=== PATIENT | male | born 1935 | race African-American/Black ===

== ENCOUNTER → 2017-05-23 | Outpatient (CLI) | payer MEDICARE ==
--- NOTE | 2017-05-23 10:49 | RADIOLOGY REPORT (SQ) ---
EXAM DESCRIPTION: CT HEAD WITHOUT COMPLETED DATE/TIME: 05/23/2017 10:27 am REASON FOR STUDY: EPILEPSY G40.909 EPILEPSY, UNSP, NOT INTRACTABLE, WITHOUT STATUS EPIL COMPARISON: None. TECHNIQUE: Axial images acquired through the brain without intravenous contrast. Images reviewed wi th bone, brain and subdural windows. Images stored on PACS. All CT scanners at this facility use dose modulation, iterative reconstruction, and/or weight based d osing when appropriate to reduce radiation dose to as low as reasonably achievable (ALARA). [facility]: Dose Right [facility]: CareDose [facility]: Dose Right [facility]: Teradose 4D [facility]: Smart [employer]s RADIATION DOSE: Up-to-date CT equipment and radiation dose reduction techniques were employed. CTDIv ol: 21.5 - 21.6 mGy. DLP: 984 mGy-cm. mGy. LIMITATIONS: Motion artifact throughout the scan. Patient was scanned twice FINDINGS: Study is significantly degraded by patient motion artifact. There is a right parietal int raventricular drainage catheter with the tip in the anterior 3rd ventricle or medial left frontal hor n lateral ventricle. Diffuse moderate hydrocephalus is present worrisome for shunt malfunction. This report was called to Dr. Quarles, 1030 hours 05/23/2017. Remainder of the study is significantly degraded by patient motion artifact. No gross large acute in tracranial hemorrhage or midline shift. IMPRESSION: Moderate hydrocephalus with right parietal intraventricular drainage catheter in place. Findings are worrisome for shunt malfunction TECHNICAL DOCUMENTATION: JOB ID: [id number] Quality ID # [id number]: Final reports with documentation of one or more dose reduction techniques (e.g., Au tomated exposure control, adjustment of the mA and/or kV according to patient size, use of iterative reconstruction technique) 2010 [employer]- All Rights Reserved
== END ==
LOC: RAD 10:07
PROVIDERS: ATTEND Family Medicine
DX: G40.909 Epilepsy, unspecified, not intractable, without status epilepticus (principal)
CPT/HCPCS: 70450

== ENCOUNTER 2017-07-02 17:15 | Emergency (ER) | payer MEDICARE ==
--- NOTE | 2017-07-02 17:49 | ER Document Report ---
ED Medical Screen (RME) - General Chief Complaint: Probable Seizure Stated Complaint: POSSIBLE SEIZURE Time Seen by Provider: 07/02/17 17:39 Mode of Arrival: Medic Information source: Patient Notes: pt has hx of seizures and is on keppra, had seizure today, family found down, they do not know how long he was down. ambulance says that he had seizures on ambulance, gave him versed. now unresponsive. TRAVEL OUTSIDE OF THE [place] IN LAST 30 DAYS: No - Related Data Allergies/Adverse Reactions: No Known Allergies Allergy (Verified 09/29/16 23:23) Past Medical History - General Information source: Emergency Med Personnel - Past Medical History Cardiac Medical History: Reports: Hx Hypertension Neurological Medical History: Denies: Hx Seizures Musculoskeltal Medical History: Reports Hx Arthritis Psychiatric Medical History: Reports: Hx Dementia Review of Systems - Review of Systems Neurological/Psychological: See HPI Physical Exam - Notes Notes: PHYSICAL EXAMINATION: GENERAL: elderly, in no acute distress. NEUROLOGICAL: unresponsive Course - Re-evaluation Re-evalutation: 07/02/17 17:49 family says that he is "unresponsive at baseline" per emt
[2017-07-02] MEDS ORDERED: LORAZEPAM INJ 2 MG/1 ML VIAL IV ONE (18:31)
--- NOTE | 2017-07-02 18:46 | RADIOLOGY REPORT (SQ) ---
EXAM DESCRIPTION: CT HEAD WITHOUT COMPLETED DATE/TIME: 07/02/2017 6:29 pm REASON FOR STUDY: seizure, unresponsive COMPARISON: 05/23/2017 TECHNIQUE: Axial images acquired through the brain without intravenous contrast. Images reviewed wi th bone, brain and subdural windows. Images stored on PACS. All CT scanners at this facility use dose modulation, iterative reconstruction, and/or weight based d osing when appropriate to reduce radiation dose to as low as reasonably achievable (ALARA). [facility]: Dose Right [facility]: CareDose [facility]: Dose Right [facility]: Teradose 4D [facility]: Smart [employer] RADIATION DOSE: Up-to-date CT equipment and radiation dose reduction techniques were employed. CTDIv ol: 49.0 mGy. DLP: 783 mGy-cm.mGy. LIMITATIONS: None. FINDINGS: VENTRICLES: Stable in size and contour with ventriculostomy catheter in place. CEREBRUM: No masses. No hemorrhage. No midline shift. Areas of low density in the white matter mos t likely due to chronic micro-vascular ischemic change. No evidence for acute infarction. CEREBELLUM: No masses. No hemorrhage. No alteration of density. No evidence for acute infarction. EXTRAAXIAL SPACES: Age-related involutional change. No fluid collections. No masses. ORBITS AND GLOBE: No intra- or extraconal masses. Normal contour of globe without masses. CALVARIUM: No fracture. PARANASAL SINUSES: No fluid or mucosal thickening. SOFT TISSUES: No mass or hematoma. OTHER: No other significant finding. IMPRESSION: NO ACUTE INTRACRANIAL PROCESS. NO SIGNIFICANT CHANGE FROM PRIOR STUDY. TECHNICAL DOCUMENTATION: JOB ID: [id number] Quality ID # [id number]: Final reports with documentation of one or more dose reduction techniques (e.g., Au tomated exposure control, adjustment of the mA and/or kV according to patient size, use of iterative reconstruction technique) 2010 [employer]- All Rights Reserved
--- NOTE | 2017-07-02 19:06 | ER Document Report ---
ED General - General Chief Complaint: Seizure Stated Complaint: POSSIBLE SEIZURE Time Seen by Provider: 07/02/17 17:39 Mode of Arrival: Medic Notes: 81-year-old male with a history of severe end-stage dementia, contracted, nonfunctional and nonverbal as well as a reported history of epilepsy on Keppra presents with 2 seizures in a row. Generalized tonic-clonic, was unresponsive during but slightly better afterward. He did receive Ativan from EMS. His baseline is apparently able to "point at things" but does not talk or do any of his ADLs. TRAVEL OUTSIDE OF THE [place] IN LAST 30 DAYS: No - Related Data Allergies/Adverse Reactions: No Known Allergies Allergy (Verified 09/29/16 23:23) Past Medical History - General Information source: Relative - Limited by lack of information, Emergency Med Personnel - Social History Smoking Status: Former Smoker Family History: Reviewed & Not Pertinent - Past Medical History Cardiac Medical History: Reports: Hx Hypertension Neurological Medical History: Denies: Hx Seizures Musculoskeltal Medical History: Reports Hx Arthritis Psychiatric Medical History: Reports: Hx Dementia Review of Systems - Review of Systems Notes: REVIEW OF SYSTEMS Unable to obtain complete review of systems secondary to dementia PHYSICAL EXAMINATION General: This is a chronically ill-appearing Head: Atraumatic, normocephalic PERRLA wasting. ENT: Ptosis, tooth decay and dry mouth Eyes: Right eye is atrophic and cannot open. Left eye has a reactive pupil at 4 mm. Neck: No JVD, supple, no guarding CVS: Normal rate, regular rhythm, no murmurs Resp: No resp distress, equal and normal breath sounds bilaterally GI: Nondistended, soft, no tenderness to palpation, no rebound or guarding Ext: No deformities, no edema, normal range of motion in upper and lower ext Back: No CVA or midline TTP Skin: No rash, warm Lymphatic: No lymphadeopathy noted Neuro: He opens eyes to voice. Moves all extremities however not on command. I suspect this is the patient's baseline. Physical Exam - Vital signs Vitals: Resp Pulse Ox 21 H 99 07/02/17 18:13 07/02/17 18:13 Course - Re-evaluation Re-evalutation: 07/02/17 19:06 End-stage dementia patient with seizures presents with seizures. He is back to baseline. No evidence of status epileptic is. Possible etiologies include epilepsy, hyponatremia, infection or intracranial lesion. Will obtain labs urine and head CT. 07/02/17 20:57 Imaging studies at baseline and labs are all normal. At 8:50 PM the patient was awake looking around the room at his baseline. Up with family and their questions were all answered satisfactorily. Insert discharge I have discussed with the patient there likely diagnosis, aftercare plan, follow-up plans and my usual and customary return precautions. They verbalized understanding of this. - Vital Signs Vital signs: Temp Pulse Resp BP Pulse Ox 18 134/87 H 100 07/02/17 20:41 07/02/17 20:41 07/02/17 20:41 - Laboratory Result Diagrams: 07/02/17 19:15 07/02/17 19:15 Laboratory results interpreted by me: 07/02/17 07/02/17 07/02/17 19:15 19:15 19:33 WBC 12.4 H Hgb 11.2 L Hct 34.7 L MCV 75 L MCH 24.3 L RDW 18.8 H Seg Neutrophils % 87.9 H Lymphocytes % 5.5 L Absolute Neutrophils 10.9 H Sodium 135.2 L Urine Blood SMALL H - Diagnostic Test Radiology reviewed: Image reviewed, Reports reviewed Discharge - Discharge Clinical Impression: Breakthrough seizure Condition: Good Disposition: HOME, SELF-CARE Instructions: Seizure, Known Epileptic ([facility]) Referrals: NIKOS LI MD [Primary Care Provider] - Follow up in 3-5 days
[2017-07-02 19:38] LABS: ABSOLUTE LYMPHOCYTES (AUTO) 0.7 10^3/uL (0.5-4.7); ABSOLUTE MONOCYTES (AUTO) 0.8 10^3/uL (0.1-1.4); ABSOLUTE NEUT (AUTO) 10.9 10^3/uL (1.7-8.2); BASOPHILS % (AUTO) 0.2 % (0-2); HEMATOCRIT 34.7 % (37.9-51.0); HEMOGLOBIN 11.2 g/dL (13.5-17.0); HGB HCT DIFFERENCE -1.1; LYMPHOCYTES % (AUTO) 5.5 % (13-45); MEAN CORPUSCULAR HEMOGLOBIN 24.3 pg (27.0-33.4); MEAN CORPUSCULAR HGB CONC 32.4 g/dL (32.0-36.0); MEAN CORPUSCULAR VOLUME 75 fl (80-97); MONOCYTES % (AUTO) 6.4 % (3-13); RED BLOOD COUNT 4.62 10^6/uL (4.35-5.55); RED CELL DISTRIBUTION WIDTH 18.8 % (11.5-14.0); SEGMENTED NEUTROPHILS % (AUTO) 87.9 % (42-78); WHITE BLOOD COUNT 12.4 10^3/uL (4.0-10.5)
[2017-07-02 19:44] LABS: APPEARANCE,URINE CLEAR; BILIRUBIN,URINE NEGATIVE (NEGATIVE); GLUCOSE, URINE NEGATIVE (NEGATIVE); KETONES,URINE NEGATIVE (NEGATIVE); LEUKOCYTE ESTERASE,URINE NEGATIVE (NEGATIVE); NITRITE,URINE NEGATIVE (NEGATIVE); PROTEIN,URINE NEGATIVE (NEGATIVE); URINE SPECIFIC GRAVITY 1.008; UROBILINOGEN,URINE NEGATIVE mg/dL (<2.0)
[2017-07-02 19:58] LABS: URINE BARBITURATES SCREEN NEGATIVE; URINE METHADONE SCREEN NEGATIVE; URINE OPIATES LOW NEGATIVE; URINE PHENCYCLIDINE SCREEN NEGATIVE
[2017-07-02 19:59] LABS: ALANINE AMINOTRANSFERASE 29 U/L (21-72); ALBUMIN 3.9 g/dL (3.5-5.0); ALKALINE PHOSPHATASE 73 U/L (38-126); ANION GAP 11 (5-19); ASPARTATE AMINO TRANSFERASE 23 U/L (17-59); BILIRUBIN,DIRECT 0.2 mg/dL (0.0-0.4); BILIRUBIN,TOTAL 0.5 mg/dL (0.2-1.3); BLOOD UREA NITROGEN 12 mg/dL (7-20); CALCIUM 8.8 mg/dL (8.4-10.2); CARBON DIOXIDE 23 mmol/L (22-30); CHLORIDE 101 mmol/L (98-107); CREATININE RESULT 0.64 mg/dL (0.52-1.25); GLUCOSE 87 mg/dL (75-110); POTASSIUM 4.1 mmol/L (3.6-5.0); SODIUM 135.2 mmol/L (137-145); TOTAL PROTEIN 7.4 g/dL (6.3-8.2)
[2017-07-02 20:42] VITALS: BP 134/87
== END 2017-07-02 21:09 | disposition home or self-care (01) ==
LOC: ER 17:15
DX: G40.909 Epilepsy, unspecified, not intractable, without status epilepticus (principal); Z79.899 Other long term (current) drug therapy; F03.90 Unspecified dementia, unspecified severity, without behavioral disturbance, psychotic disturbance, mood disturbance, and anxiety; I10 Essential (primary) hypertension; K02.9 Dental caries, unspecified; R68.2 Dry mouth, unspecified; Z87.891 Personal history of nicotine dependence
CPT/HCPCS: 99284; 51701; 96374; 36415; 85025; 80053; 81001; 80307; 70450; J2060

== ENCOUNTER 2017-07-04 10:06 | Inpatient (IN) | payer MEDICARE ==
[2017-07-04 11:24] LABS: ABSOLUTE NEUT (AUTO) 14.9 10^3/uL (1.7-8.2); BASOPHILS % (AUTO) 0.2 % (0-2); EOSINOPHILS % (AUTO) 0.1 % (0-6); HEMATOCRIT 35.7 % (37.9-51.0); HEMOGLOBIN 11.8 g/dL (13.5-17.0); HGB HCT DIFFERENCE -0.3; LYMPHOCYTES % (AUTO) 5.7 % (13-45); MEAN CORPUSCULAR HEMOGLOBIN 24.7 pg (27.0-33.4); MEAN CORPUSCULAR VOLUME 75 fl (80-97); MONOCYTES % (AUTO) 6.1 % (3-13); RED BLOOD COUNT 4.77 10^6/uL (4.35-5.55); RED CELL DISTRIBUTION WIDTH 19.2 % (11.5-14.0); SEGMENTED NEUTROPHILS % (AUTO) 87.9 % (42-78); WHITE BLOOD COUNT 16.9 10^3/uL (4.0-10.5)
[2017-07-04] MEDS ORDERED: NORMAL SALINE 1000 ML 1,000 ML IV PRN ×2 (11:26→16:09)
[2017-07-04] MEDS ORDERED: LEVETIRACETAM 1000 MG/NACL-ISO 100 ML IV ONE (11:27)
--- NOTE | 2017-07-04 11:37 | ER Document Report ---
ED General - General Chief Complaint: seizures Stated Complaint: POSSIBLE SEIZURE Time Seen by Provider: 07/04/17 10:20 Mode of Arrival: Medic Information source: Relative Notes: This is an 81-year-old man with a history of a traumatic brain injury in 1990: Encephalitis: History of shunt since 1990, diagnosed with colon cancer 8 months ago (deemed a nonsurgical in [place]), recent onset of seizures 2 months ago. Patient has been evaluated by neurology and neurosurgery at [facility] 2 months ago and found to have a disconnected shunt. Patient was deemed nonsurgical at that point by neurosurgery and the patient was placed on Keppra pseudoseizures. Patient presents after the third seizure for the past 2 months. Patient was given Versed by EMS. The seizure was described as generalized tonic-clonic activity. The patient's son states that it has been difficult for the patient to eat or drink because of frequent tonic-clonic jerking. The Keppra was recently increased to thousand milligrams twice daily. TRAVEL OUTSIDE OF THE [place] IN LAST 30 DAYS: No - HPI Onset: Last week Onset/Duration: Gradual Quality of pain: No pain Severity: None Pain Level: Denies Associated symptoms: denies: Chest pain, Fever, Shortness of breath Exacerbated by: Denies Relieved by: Denies Similar symptoms previously: Yes Recently seen / treated by doctor: Yes - Related Data Allergies/Adverse Reactions: No Known Allergies Allergy (Verified 09/29/16 23:23) Home Medications: Current Home Medications Levetiracetam [Spritam] 200 mg PO Q12 07/04/17 [History] Simvastatin 10 mg PO DAILY 07/04/17 [History] Past Medical History - General Information source: Patient - Social History Smoking Status: Never Smoker Cigarette use (# per day): No Chew tobacco use (# tins/day): No Frequency of alcohol use: None Drug Abuse: None Lives with: Family Family History: Reviewed & Not Pertinent Patient has suicidal ideation: No Patient has homicidal ideation: No - Past Medical History Cardiac Medical History: Reports: Hx Hypertension Pulmonary Medical History: Reports: None EENT Medical History: Reports: None Neurological Medical History: Reports: Hx Seizures Endocrine Medical History: Reports: None Renal/ Medical History: Reports: None. 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 Review of Systems - Review of Systems Constitutional: denies: Chills, Fever EENT: No symptoms reported Cardiovascular: No symptoms reported Respiratory: No symptoms reported Gastrointestinal: See HPI Genitourinary: No symptoms reported Male Genitourinary: No symptoms reported Musculoskeletal: No symptoms reported Skin: No symptoms reported Hematologic/Lymphatic: No symptoms reported Neurological/Psychological: See HPI Physical Exam - Vital signs Vitals: Temp Pulse Resp BP Pulse Ox 98.1 F 94 16 126/88 H 97 07/04/17 10:11 07/04/17 10:11 07/04/17 10:11 07/04/17 10:11 07/04/17 10:11 Notes: Physical exam: GENERAL: 81-year-old man, lethargic after Versed. HEAD: Atraumatic, normocephalic. EYES: Pupils equal round and reactive to light, extraocular movements intact, sclera anicteric, conjunctiva are normal. ENT: TMs normal, nares patent, oropharynx clear without exudates. Moist mucous membranes. NECK: Normal range of motion, supple without lymphadenopathy or JVD. LUNGS: Breath sounds clear to auscultation bilaterally and equal. Scattered wheezes. HEART: Regular rate and rhythm without murmurs, rubs or gallops. ABDOMEN: Soft, normoactive bowel sounds. No tenderness to palpation. No guarding, no rebound. No masses appreciated. EXTREMITIES: Normal range of motion, no pitting or edema. No clubbing or cyanosis. NEUROLOGICAL: Postictal, lethargic after Versed. At baseline, patient is nonverbal, nonambulatory. SKIN: Warm, Dry, normal turgor, no rashes or lesions noted. Course - Re-evaluation Re-evalutation: 07/04/17 15:52 Several conversations with the family as well as Dr. Quarles. The patient has had a significant decline in the last several months and his shunt is no longer functioning and he was not felt to be a surgical candidate. He was diagnosed with colon cancer 8 months ago in [place] and was deemed nonsurgical candidate at that time. He has been evaluated by the oncologist and felt to be not a candidate for chemotherapy. He has gradually had declining oral intake and worsening seizures. He was given IV Keppra in the emergency room and IV fluids. I discussed the case with Dr. Hanna (hospitalist at [facility]) and he had a chance to review the chart. The patient was felt to be appropriate for palliative care at that time and did have conversations with the family. After looking at the chart and going over the story, Dr. Austin recommended I have a conversation about hospice regarding the patient To his family. I did bring up the issue of hospice with the family and they are agreeable at this time. I have discussed this with Dr. Quarles as well in he agrees that the patient should be hospice. I spoke to the patient's son and he has agreed to make the patient a DNR. If the patient was to have a cardiac arrest, no CPR, or intubation. At this point we will make him comfortable, bring him into the hospital, Dr. Quarles will make arrangements for hospice consult and transition tomorrow. 07/04/17 20:49 Note: I have had several conversations with the family and spent time answering their questions. I have discussed the case several times with Dr. Quarles. I have spoken with [facility] as above. 07/04/17 20:50 - Vital Signs Vital signs: Temp Pulse Resp BP Pulse Ox 98.8 F 112 H 19 95/72 L 85 L 07/04/17 20:46 07/04/17 20:46 07/04/17 20:46 07/04/17 20:46 07/04/17 20:46 - Laboratory Result Diagrams: 07/04/17 11:10 07/04/17 11:10 Laboratory results interpreted by me: 07/04/17 07/04/17 07/04/17 11:10 11:10 14:03 WBC 16.9 H Hgb 11.8 L Hct 35.7 L MCV 75 L MCH 24.7 L RDW 19.2 H Seg Neutrophils % 87.9 H Lymphocytes % 5.7 L Absolute Neutrophils 14.9 H Sodium 133.7 L BUN 25 H Urine Protein 30 H Urine Ketones TRACE H Urine Blood SMALL H Urine Ascorbic Acid 20 H - Diagnostic Test Radiology reviewed: Image reviewed, Reports reviewed - Chest x-ray shows no infiltrates - EKG Interpretation by Me Rate: Normal Rhythm: NSR - EKG shows normal sinus rhythm with a ventricular rate of 97, there is some baseline artifact from frequent tonic-clonic jerking (this is baseline as per family), no obvious ST changes. Critical Care Note - Critical Care Note Total time excluding time spent on procedures (mins): 60 Discharge - Discharge Clinical Impression: Seizures Condition: Poor Disposition: ADMITTED OBSERVATION Admitting Provider: Quarles Unit Admitted: Medical Floor
[2017-07-04 11:41] LABS: ALANINE AMINOTRANSFERASE 30 U/L (21-72); ALKALINE PHOSPHATASE 69 U/L (38-126); ANION GAP 12 (5-19); ASPARTATE AMINO TRANSFERASE 49 U/L (17-59); BILIRUBIN,DIRECT 0.3 mg/dL (0.0-0.4); BLOOD UREA NITROGEN 25 mg/dL (7-20); CALCIUM 9.1 mg/dL (8.4-10.2); CARBON DIOXIDE 24 mmol/L (22-30); CHLORIDE 98 mmol/L (98-107); CREATININE RESULT 0.62 mg/dL (0.52-1.25); GLUCOSE 97 mg/dL (75-110); POTASSIUM 4.4 mmol/L (3.6-5.0); SODIUM 133.7 mmol/L (137-145); TOTAL PROTEIN 7.8 g/dL (6.3-8.2)
[2017-07-04 11:43] LABS: ALCOHOL < 10 mg/dL (NONE DETECTED)
--- NOTE | 2017-07-04 12:46 | RADIOLOGY REPORT (SQ) ---
EXAM DESCRIPTION: CHEST SINGLE VIEW COMPLETED DATE/TIME: 07/04/2017 12:01 pm REASON FOR STUDY: altered, dec o2 sat COMPARISON: CT 11/02/2016 radiograph 09/22/2016 EXAM PARAMETERS: NUMBER OF VIEWS: One view. TECHNIQUE: Single frontal radiographic view of the chest acquired. RADIATION DOSE: NA LIMITATIONS: None. FINDINGS: LUNGS AND PLEURA: No opacities, masses or pneumothorax. No pleural effusion. MEDIASTINUM AND HILAR STRUCTURES: No masses. Contour normal. HEART AND VASCULAR STRUCTURES: Heart normal in size. Normal vasculature. BONES: No acute findings. HARDWARE: Possible discontinuity of the central venous catheter. It is possible that this represents a non radiopaque connector. The tip of the catheter appears to be in the right atrium. OTHER: No other significant finding. IMPRESSION: Catheter as described. There is no acute cardiopulmonary disease. TECHNICAL DOCUMENTATION: JOB ID: [id number]
--- NOTE | 2017-07-04 13:08 | EKG REPORT ---
SEVERITY:- ABNORMAL ECG - SINUS RHYTHM LOW VOLTAGE IN FRONTAL LEADS : Confirmed by: Martin Gates MD 04-Jul-2017 13:07:46
[2017-07-04] MEDS ORDERED: CEFTRIAXONE 1 GM/D5W RTU 50 ML IV ONE (13:34)
[2017-07-04 14:26] LABS: APPEARANCE,URINE CLEAR; BILIRUBIN,URINE NEGATIVE (NEGATIVE); GLUCOSE, URINE NEGATIVE (NEGATIVE); KETONES,URINE TRACE mg/dL (NEGATIVE); LEUKOCYTE ESTERASE,URINE NEGATIVE (NEGATIVE); NITRITE,URINE NEGATIVE (NEGATIVE); PROTEIN,URINE 30 mg/dL (NEGATIVE); URINE SPECIFIC GRAVITY 1.024; UROBILINOGEN,URINE NEGATIVE mg/dL (<2.0)
[2017-07-04] MEDS ORDERED: ACETAMINOPHEN 325 MG TABLET PO PRN (16:09)
[2017-07-04] MEDS ORDERED: IPRATROPIUM/ALBUTEROL 0.5-2.5 MG/3 ML AMPUL NEB PRN (16:09)
[2017-07-04] MEDS ORDERED: ENOXAPARIN SODIUM INJ 40 MG/0.4 ML DISP.SYRIN SUBCUT ONE (17:00)
--- NOTE | 2017-07-04 18:28 | PDOC H&P ---
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 Should also have a history of the colon cancer and seen by the colorectal surgery in [place] and suggest no candidate for surgery and also seen by oncologist and no candidate for any chemotherapy or radiation therapy Patient's overall condition with the significant underlying dementia and the neurosyphilis pretty much patient does not communicate and is since the last several months patient is getting more worse Patient initially put on a Keppra 500 mg twice a day was increased to thousand milligrams twice a day because of the uncontrolled seizures and patient at this point brought to the emergency departmentAnd patient have initially CT of the head done yesterday was stableAnd the patient's brought to the my office and we increased the dose of the Keppra and patients brought again in the emergency department today with the same problems and very extensive discussions with the patient neurologist at the [facility] by the ER physicians and suggest nothing they can offer and suggest the hospice careAnd ER physician and we discussed with the family and angry with the hospice care and patient was admitted for the overnight and arrange the hospice Patient have a multiple other comorbidity with ongoing failure the patient with ongoing colon cancer within no candidate for any surgery or any chemotherapy with underlying dementia with the worsening condition since last several months I think patient is appropriate for the comfort care Past Medical History Cardiac Medical History: Reports: Hypertension Neurological Medical History: Reports: Seizures Malignancy Medical History: Reports: Colorectal Cancer GI Medical History: Reports: Gastroesophageal Reflux Disease Musculoskeltal Medical History: Reports: Arthritis Psychiatric Medical History: Reports: Dementia, General Anxiety Disorder Past Surgical History Past Surgical History: Reports: Other Social History Smoking Status: Unknown if Ever Smoked Frequency of Alcohol Use: None Hx Recreational Drug Use: No Drugs: None Hx Prescription Drug Abuse: No Family History Family History: Reviewed & Not Pertinent Parental Family History Reviewed: Yes Children Family History Reviewed: Yes Sibling(s) Family History Reviewed.: Yes Medication/Allergy Home Medications: Amlodipine Besylate 5 mg PO DAILY 09/21/16 Haloperidol [Haldol 2 mg Tablet] 2 mg PO QAM 09/21/16 Haloperidol [Haldol 2 mg Tablet] 4 mg PO QPM 09/21/16 Trihexyphenidyl HCl 2 mg PO BID 09/21/16 Levetiracetam [Spritam] 200 mg PO Q12H 07/04/17 Simvastatin 10 mg PO DAILY 07/04/17 Allergies/Adverse Reactions: No Known Allergies Allergy (Verified 09/29/16 23:23) Review of Systems All systems: reviewed and no additional remarkable complaints except as stated Physical Exam Vital Signs: Temp Pulse Resp BP Pulse Ox 98.1 F 94 16 126/88 H 97 07/04/17 10:11 07/04/17 10:11 07/04/17 10:11 07/04/17 10:11 07/04/17 10:11 Physical Exam: Patients to have a significant dementia not committed to communicate pretty much currently lying in the bed no acute distress is see General appearance: PRESENT: no acute distress Eye exam: PRESENT: PERRLA Neck exam: ABSENT: JVD Respiratory exam: PRESENT: clear to auscultation fady Cardiovascular exam: PRESENT: +S1, +S2 GI/Abdominal exam: PRESENT: normal bowel sounds, soft Extremities exam: ABSENT: pedal edema Neurological exam: PRESENT: altered Psychiatric exam: PRESENT: anxious Skin exam: PRESENT: dry Results Impressions: Chest X-Ray 07/04/17 11:37 IMPRESSION: Catheter as described. There is no acute cardiopulmonary disease. Assessment & Plan - Diagnosis (1) Uncontrolled seizures Qualifiers: Convulsion type: unspecified Qualified Code(s): R56.9 - Unspecified convulsions Is this a current diagnosis for this admission?: YesPlan: Unfortunately patients to have a hydrocephalus with the nonfunctioning DEMOLITION CRANE OPERATOR shunt and patient seen by the neurology and neurosurgery and again discussed with the ER physicians today nothing else needs to be offer and continues to Keppra the palliative care (2) Colon cancer Qualifiers: Colon location: unspecified part of colon Qualified Code(s): C18.9 - Malignant neoplasm of colon, unspecified Is this a current diagnosis for this admission?: YesPlan: Mostly a palliative care not a candidate for any surgery or any chemo or radiation's (3) Hydrocephalus Is this a current diagnosis for this admission?: YesPlan: Nonfunctioning DEMOLITION CRANE OPERATOR shunt (4) Nonfunctional of ventriculoperitoneal shunt Qualifiers: Encounter type: sequela Qualified Code(s): T85.09XS - Other mechanical complication of ventricular intracranial (communicating) shunt, sequela Is this a current diagnosis for this admission?: YesPlan: Chest the palliative care (5) Dementia Qualifiers: Dementia type: associated with other underlying disease Dementia behavioral disturbance: with behavioral disturbance Qualified Code(s): F02.81 - Dementia in other diseases classified elsewhere with behavioral disturbance Is this a current diagnosis for this admission?: YesPlan: Worsening due to the above conditions (6) Enlarged prostate with lower urinary tract symptoms (LUTS) Qualifiers: Qualified Code(s): N40.1 - Benign prostatic hyperplasia with lower urinary tract symptoms Is this a current diagnosis for this admission?: Yes (7) Urinary tract infection Qualifiers: Urinary tract infection type: acute pyelonephritis Qualified Code(s) : N10 - Acute pyelonephritis Is this a current diagnosis for this admission?: YesPlan: Continues IV Rocephin send the urine culture (8) Neurosyphilis Is this a current diagnosis for this admission?: Yes - Time Time Spent: 50 to 70 Minutes Medications reviewed and adjusted accordingly: Yes Anticipated discharge: Hospice Within: within 24 hours - Inpatient Certification Medical Necessity: Need Close Monitoring Due to Risk of Patient Decompensation Post Hospital Care: D/C [employer] Documentation - Plan Summary Plan Summary: At this stage very extensive discussions with the family with the end-stage disease with the hydrocephalus and the nonfunctioning DEMOLITION CRANE OPERATOR shunt and history of the significant dementia and colon cancer with a not a candidate for any treatment suggest the hospice careAnd the patient's currently a DNR/DNI and we arrange the hospice and all family agree
[2017-07-04] MEDS: HALOPERIDOL 2 MG TABLET PO SCH (18:52)
[2017-07-04] MEDS: DOCUSATE SODIUM 100 MG CAPSULE PO SCH (18:52)
[2017-07-04] MEDS: TRIHEXYPHENIDYL HCL 2 MG TABLET PO SCH (18:53)
[2017-07-04] MEDS: LEVETIRACETAM 1000 MG/NACL-ISO 100 ML IV SCH (21:26)
[2017-07-05] MEDS ORDERED: HALOPERIDOL 2 MG TABLET PO SCH (08:00)
[2017-07-05] MEDS ORDERED: CEFTRIAXONE 1 GM/D5W RTU 50 ML IV SCH (10:00)
[2017-07-05] MEDS ORDERED: ENOXAPARIN SODIUM INJ 40 MG/0.4 ML DISP.SYRIN SUBCUT SCH (10:00)
[2017-07-05] MEDS ORDERED: SIMVASTATIN 10 MG TABLET PO SCH (10:00)
[2017-07-05] MEDS ORDERED: AMLODIPINE BESYLATE 5 MG TABLET PO SCH (10:00)
[2017-07-05] MEDS: DOCUSATE SODIUM 100 MG CAPSULE PO SCH ×2 (10:05→17:09)
[2017-07-05] MEDS: TRIHEXYPHENIDYL HCL 2 MG TABLET PO SCH ×2 (10:05→17:09)
[2017-07-05] MEDS: LEVETIRACETAM 1000 MG/NACL-ISO 100 ML IV SCH ×2 (10:53→21:40)
--- NOTE | 2017-07-05 10:55 | PDOC DISCHARGE SUMMARY ---
General - Admit/Disc Date/PCP Admission Date/Primary Care Provider: 07/04/17 16:09 NIKOS LI MD Discharge Date: 07/05/17 - Discharge Diagnosis (1) Uncontrolled seizures Is this a current diagnosis for this admission?: YesSummary: Continues to keyessira (2) Colon cancer Is this a current diagnosis for this admission?: YesSummary: Not a candidate for any surgical intervention in the chemotherapy (3) Hydrocephalus Is this a current diagnosis for this admission?: YesSummary: Not a candidate for any surgical intervention (4) Nonfunctional of ventriculoperitoneal shunt Is this a current diagnosis for this admission?: YesSummary: Patient seen by the neurosurgery and currently not a candidate for any further evaluations and suggest a palliative care (5) Dementia Is this a current diagnosis for this admission?: YesSummary: Stable (6) Enlarged prostate with lower urinary tract symptoms (LUTS) Is this a current diagnosis for this admission?: Yes (7) Urinary tract infection Is this a current diagnosis for this admission?: Yes (8) Neurosyphilis Is this a current diagnosis for this admission?: Yes - Additional Information Discharge Diet: As Tolerated Home Medications: Amlodipine Besylate 5 mg PO DAILY 09/21/16 Haloperidol [Haldol 2 mg Tablet] 2 mg PO QAM 09/21/16 Haloperidol [Haldol 2 mg Tablet] 4 mg PO QPM 09/21/16 Trihexyphenidyl HCl 2 mg PO BID 09/21/16 Simvastatin 10 mg PO DAILY 07/04/17 Levetiracetam [Keppra] 500 mg PO BID #0 bottle 07/05/17 Lorazepam [Ativan 0.5 mg Tablet] 0.5 mg PO Q4 PRN #30 tab 07/05/17 Morphine Sulfate 20 mg PO Q3HP PRN #0 bottle 07/05/17 History of Present Illness History of Present Illness: JOEL GUTIERREZ is a 81 year old maleWith a significant history of the hydrocephalusStatus post 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 Should also have a history of the colon cancer and seen by the colorectal surgery in [place] and suggest no candidate for surgery and also seen by oncologist and no candidate for any chemotherapy or radiation therapy Patient's overall condition with the significant underlying dementia and the neurosyphilis pretty much patient does not communicate and is since the last several months patient is getting more worse Patient initially put on a Keppra 500 mg twice a day was increased to thousand milligrams twice a day because of the uncontrolled seizures and patient at this point brought to the emergency departmentAnd patient have initially CT of the head done yesterday was stableAnd the patient's brought to the my office and we increased the dose of the Keppra and patients brought again in the emergency department today with the same problems and very extensive discussions with the patient neurologist at the [facility] by the ER physicians and suggest nothing they can offer and suggest the hospice careAnd ER physician and we discussed with the family and angry with the hospice care and patient was admitted for the overnight and arrange the hospice Patient have a multiple other comorbidity with ongoing failure the patient with ongoing colon cancer within no candidate for any surgery or any chemotherapy with underlying dementia with the worsening condition since last several months I think patient is appropriate for the comfort care Hospital Course Hospital Course: Noise is a 81-year-old male with a history of the hydrocephalus patient have a history of the S[employer]IOR UND[employer]WRITER shunt and currently not working patients underwent for the [facility] neurosurgical evaluations and suggests that there is no candidate for any further interventionAnd suggest more like a palliative care and patient was put on the seizures medications . Patient also have a history of the colon cancer and underwent for a colorectal surgery evaluations and suggest a not a candidate for any surgical evaluation and patient's overall conditions patient is not a candidate for any chemotherapy Patient have a history of neurosyphilis and dementia patient is really not communicative for so many years Patient's overall condition is poor before the beginning of this nonfunctioning the patient and diagnosed with the colon cancers and after that patients getting the more often seizures and at this point increased the dose of the Keppra but patient unable to eat or drink muchAnd the patient is a not a good candidate for any further surgical interventions for the putting the g tube And with this 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 than 6 month and discussed with the Patient's son and all extensive family and the recommendations from the [facility] pretty much at this point patient's supporting the hospice care and comfort care only and all agree and discussed all options Physical Exam Vital Signs: Temp Pulse Resp BP Pulse Ox 98.7 F 70 16 142/53 H 96 07/05/17 08:00 07/05/17 08:00 07/05/17 08:00 07/05/17 08:00 07/05/17 08:00 Intake & Output 07/04/17 07/05/17 07/06/17 06:59 06:59 06:59 Intake Total 783 Balance 783 Weight 56.3 kg General appearance: PRESENT: no acute distress Eye exam: PRESENT: PERRLA Mouth exam: PRESENT: neck supple Neck exam: ABSENT: JVD Respiratory exam: PRESENT: clear to auscultation fady Cardiovascular exam: PRESENT: +S1, +S2 GI/Abdominal exam: PRESENT: normal bowel sounds, soft Neurological exam: PRESENT: altered Psychiatric exam: PRESENT: agitated Results Impressions: Chest X-Ray 07/04/17 11:37 IMPRESSION: Catheter as described. There is no acute cardiopulmonary disease. Plan Time Spent: Greater than 30 Minutes - Patients with this end-stage disease the left experience of the less than 6 month and very extensivediscussions with the patient's family and all agreed with the hospice care and patients at this point waiting for the family decided to going to inpatient hospice versus home hospice
[2017-07-05] MEDS: LORAZEPAM INJ 2 MG/1 ML VIAL IV PRN ×2 (16:54→21:38)
[2017-07-05] MEDS: HALOPERIDOL 2 MG TABLET PO SCH (17:09)
[2017-07-06 08:34] VITALS: BP 138/80
== END 2017-07-06 08:30 | disposition hospice, inpatient (51) | DRG 101 ==
LOC: ER 10:06 → EH 16:04 → OBSVTOIN 16:09 → 4N 17:40
PROVIDERS: ADMIT Family Medicine; ATTEND Family Medicine
DX: G40.89 Other seizures (principal); G91.9 Hydrocephalus, unspecified; N10 Acute pyelonephritis; A52.3 Neurosyphilis, unspecified; C18.9 Malignant neoplasm of colon, unspecified; F02.81 Dementia in other diseases classified elsewhere, unspecified severity, with behavioral disturbance; T85.0 Mechanical complication of ventricular intracranial (communicating) shunt; Z51.5 Encounter for palliative care; N40.1 Benign prostatic hyperplasia with lower urinary tract symptoms; Z79.899 Other long term (current) drug therapy
CPT/HCPCS: 36415; 51701; 70450; 71010; 80053; 80307; 81001; 82962; 83735; 85025; 87040; 87086; 93005; 93010; 96361; 96365; 96367; 96374; 99284; 99291; J0696; J1650; J1953; J2060; J3490; J7030